=== PATIENT | female | born 1935 | race Caucasian/White ===

== ENCOUNTER → 2023-10-14 12:22 | Outpatient (REF) | payer OTHER, SELFPAY | LOC: HWRAD 12:22 | PROVIDERS: ATTENDING PHYSICIAN Internal Medicine | DX: K59.09 Other constipation (principal) | CPT/HCPCS: 74018 ==

== ENCOUNTER → 2024-02-01 11:43 | Outpatient (REF) | payer OTHER, SELFPAY | LOC: HWRAD 11:43 | PROVIDERS: ATTENDING PHYSICIAN Internal Medicine | DX: M25.511 Pain in right shoulder (principal); M25.512 Pain in left shoulder; M54.2 Cervicalgia; M54.50 Low back pain, unspecified | CPT/HCPCS: 72050; 72110; 73030 ==

== ENCOUNTER → 2024-09-16 09:23 | Outpatient (REF) | payer OTHER, SELFPAY | LOC: RAD 09:23 | PROVIDERS: ATTENDING PHYSICIAN Internal Medicine Rheumatology; FAMILY PHYSICIAN Internal Medicine | DX: M81.0 Age-related osteoporosis without current pathological fracture (principal) | CPT/HCPCS: 77080 ==

== ENCOUNTER → 2024-10-10 15:16 | Outpatient (REF) | payer OTHER, SELFPAY | LOC: RAD 15:16 | PROVIDERS: ATTENDING PHYSICIAN Internal Medicine | DX: M79.89 Other specified soft tissue disorders (principal); M25.552 Pain in left hip | CPT/HCPCS: 73502; 93971 ==

== ENCOUNTER → 2024-10-28 13:37 | Outpatient (REF) | payer OTHER, SELFPAY | LOC: RCS 13:37 | PROVIDERS: ATTENDING PHYSICIAN Internal Medicine; FAMILY PHYSICIAN Internal Medicine | DX: I50.22 Chronic systolic (congestive) heart failure (principal); I10 Essential (primary) hypertension; I48.0 Paroxysmal atrial fibrillation | CPT/HCPCS: 93306 ==